=== PATIENT | female | born 1980 | race Two or more races ===

== ENCOUNTER 2024-08-10 09:30 | Outpatient (AMB) | payer OTHER, MEDICAID, SELFPAY ==
[2024-08-10 09:51] VITALS: BP 100/62; PULSE 112; O2SAT 98; BMI 20.7
--- NOTE | 2024-08-10 09:51 | MHC.OFFVIS ---
Vital Signs 08/10/24 09:51 Height 4 ft 11 in Weight 102 lb 11.767 oz BMI 20.7 BP 100/62 Blood Pressure Location Lt brachial Position Sitting Pulse 112 H Pulse Source Pulse Oximeter Pulse Oximetry (%) 98 Oxygen Delivery Method Room Air Intake Visit Reasons: Lupus Intake Note: Patient presents for follow up on lupus. Allergies No Known Allergies Allergy (Verified 08/10/24 09:53) HPI Comments Details: She continues to have joint pain in her hands. A few days ago her left 2nd and 3rd finger were very painful. Pain has decreased today. She has not self medicating. She has not required prednisone since last visit. She denies fevers, rash, Raynaud's phenomenon, urinary symptoms, pleurisy, dyspnea, chest pain. She has dry mouth. Review of Systems Const All systems reviewed & are unremarkable except as noted in HPI and below Physical Exam Vital Signs: Last Vital Signs Pulse 112 H 08/10/24 09:51 BP 100/62 08/10/24 09:51 Pulse Ox 98 08/10/24 09:51 Oxygen Delivery Method Room Air 08/10/24 09:51 BMI result Body Mass Index 20.7 Const Other: General: Comfortable CVS: RRR Respiratory: clear to auscultation bilaterally. Good respiratory effort Skin: No lesions seen, discoloration of fingertips. No digital ulcers. MSK: Tender to palpate bilateral MCPs, PIP knees with synovitis present right 2nd PIP. Tender bilateral shoulders, knees. She has limited flexion left knee due to hamstring pain. Assessment & Plan Assessment & Plan (1) Systemic lupus erythematosus: Comment: Inflammatory arthritis is not controlled on monotherapy with hydroxychloroquine. She has not tolerated and failed DMARDs leflunomide, methotrexate in the past. Benlysta is indicated. We discussed side effects, drug monitoring and benefits. She prefers Benlysta infusion. Code(s): M32.9 - Systemic lupus erythematosus, unspecified Category: Medical Qualifiers: Systemic lupus erythematosus type: unspecified Systemic lupus erythematosus organ involvement: other Qualified Code(s): M32.19 - Other organ or system involvement in systemic lupus erythematosus Plan: Labs to assess disease and drug monitoring ordered After lab results are back, we will send PA process for Benlysta infusion. Continue hydroxychloroquine 200 mg daily [facility] Return to clinic in 3 months Orders: Orders Anti Extractable Nuclear Ag Today M32.9 - Systemic lupus erythematosus, unspecified Anti DNA DS Antibody Today M32.9 - Systemic lupus erythematosus, unspecified Complement C4 Today M32.9 - Systemic lupus erythematosus, unspecified DNA Double Stranded-Crithidia Today M32.9 - Systemic lupus erythematosus, unspecified Erythrocyte Sedimentation Rate Today M32.9 - Systemic lupus erythematosus, unspecified Sjogren's Antibodies Today M32.9 - Systemic lupus erythematosus, unspecified Hepatitis B,C Profile Today M32.9 - Systemic lupus erythematosus, unspecified EDWIN Reflex Titer and Pattern Today M32.9 - Systemic lupus erythematosus, unspecified Complement C3 Today M32.9 - Systemic lupus erythematosus, unspecified C Reactive Protein Today M32.9 - Systemic lupus erythematosus, unspecified UA w Microscopic Today M32.9 - Systemic lupus erythematosus, unspecified Protein Creatinine Ratio, Ur Today M32.9 - Systemic lupus erythematosus, unspecified T Spot TB Today M32.9 - Systemic lupus erythematosus, unspecified Coding Level of Care Code Est Pt Level 4 (29909) Complex EM visit Add On G2211 Diagnoses Systemic lupus erythematosus with other organ involvement, unspecified SLE type M32.19 Systemic lupus erythematosus type: unspecified Systemic lupus erythematosus organ involvement: other
== END 2024-08-10 10:37 | disposition home or self-care (01) ==
PROVIDERS: PCP Internal Medicine; Visit Provider Internal Medicine Rheumatology
DX: M32.19 Other organ or system involvement in systemic lupus erythematosus (principal)
CPT/HCPCS: 99214

== ENCOUNTER → 2024-08-10 09:30 | Outpatient (BNVA) | payer OTHER, MEDICAID, SELFPAY | PROVIDERS: PCP Internal Medicine; Visit Provider Internal Medicine Rheumatology ==

== ENCOUNTER 2024-08-11 08:19 | Outpatient (REF) | payer OTHER, MEDICAID, SELFPAY ==
[2024-08-11 10:24] LABS: Appearance Urine Clear; Color Urine Yellow; Glucose Urine UA Negative (Negative); Leukocyte Esterase Urine Negative (Negative); Nitrite Urine Negative (Negative); PH 6.5 (5.0-9.0); Urine Blood Negative (Negative); Urine Ketones Negative (Negative); Urine Protein Negative (Neg-Trace)
[2024-08-11 10:31] LABS: Bacteria Urine Trace (None Seen); Hyaline Casts Urine 0-2 /LPF (0-2); RBC Urine 0-2 /HPF (0-2)
[2024-08-11 10:37] LABS: C Reactive Protein 0.21 mg/dL (< or = 0.50)
[2024-08-11 11:05] LABS: Creatinine Urine 175.28 mg/dL; Protein/Creatinine Ratio, Ur 0.06 (<0.2); Total Protein Urine Random 10 mg/dL (<12)
[2024-08-11 11:07] LABS: HBS Num1 1.85 mIU/mL (0-7.99); HBc Num1 0.14 S/CO (0.00-0.79); HBsAGNum1 0.41 S/CO (0.00-0.99); Hepatitis B Core Antibody Nonreactive (Nonreactive); Hepatitis B Surface Antigen Negative (Negative); ~HepC Num1 0.23 S/CO (0.00-0.79); ~Hepatitis B Surface Antibody NONREACTIVE (Nonreactive); ~Hepatitis C Antibody Nonreactive (Nonreactive)
[2024-08-11 11:09] LABS: Erythrocyte Sedimentation Rate 28 MM/HR (0-20)
[2024-08-12 21:53] LABS: Anti DNA DS Antibody 1 IU/mL; Antibody to SS-A Antigen <1.0 NEG AI (<1.0 NEG); Antibody to SS-B Antigen <1.0 NEG AI (<1.0 NEG); SM/Ribonucleoprotein Ab <1.0 NEG AI (<1.0 NEG); Smith Protein <1.0 NEG AI (<1.0 NEG)
[2024-08-13 14:49] LABS: Complement C3 127 mg/dL (83-193)
[2024-08-14 02:53] LABS: TS Negative Control Passed; TS Panel A 0; TS Panel B 0; TS Positive Control Passed; TSpotTB Negative (Negative)
[2024-08-16 14:43] LABS: Anti Nuclear Antibody Screen NEGATIVE (NEGATIVE)
[2024-08-19 14:07] LABS: DNAds, Crithidia Antibody Positive (Negative)
[2024-08-19 14:48] LABS: DNAds, Crithidia Antibody 1:10 titer (<1:10)
== END 2024-08-11 08:20 | disposition home or self-care (01) ==
LOC: HO.HMGCLDS 08:19
PROVIDERS: PCP Internal Medicine; Visit Provider Internal Medicine Rheumatology
DX: M32.9 Systemic lupus erythematosus, unspecified (principal)
CPT/HCPCS: 36415; 81001; 82570; 84156; 85652; 86038; 86140; 86160; 86225; 86235; 86255; 86481; 86704; 86706; 86803; 87340

== ENCOUNTER 2024-08-26 12:03 | Outpatient (REF) | payer OTHER, MEDICAID, SELFPAY ==
[2024-08-26 13:06] LABS: MANUAL DIFF FLAG NO
[2024-08-26 13:13] LABS: Basophils Percent Auto 0.6 % (0-2); Eosinophils Absolute Auto 0.1 X10*3/uL (0.0-0.4); Eosinophils Percent Auto 1.3 % (0-4); Hematocrit 35.2 % (37.0-47.0); Hemoglobin 11.4 g/dl (12.0-16.0); Imm Gran Abs Auto 0.02 X10*3/uL (0.00-0.03); Imm Gran Pct Auto 0.4 % (0.0-0.4); Lymphocytes Absolute Auto 1.3 X10*3/uL (1.2-4.9); Lymphocytes Percent Auto 24.8 % (20-40); Mean Corpuscular HGB Conc 32.4 g/dl (31.0-35.0); Mean Corpuscular Hemoglobin 27.9 pg (27.0-33.0); Mean Corpuscular Volume 86.3 fL (80.0-98.0); Monocytes Absolute Auto 0.5 X10*3/uL (0.1-1.2); Monocytes Percent Auto 10.3 % (2-11); Neutrophils Absolute Auto 3.3 x10*3/uL (2.0-8.3); Neutrophils Percent Auto 62.6 % (45-73); Platelet Count 244 X10*3/uL (160-400); Red Blood Count 4.08 X10*6/uL (4.20-5.50); Red Cell Distribution Width 13.6 % (11.0-16.0); White Blood Count 5.3 X10*3/uL (4.8-10.8)
== END 2024-08-26 12:04 | disposition home or self-care (01) ==
LOC: HO.HMGCLDS 12:03
PROVIDERS: Visit Provider Internal Medicine Rheumatology
DX: M32.19 Other organ or system involvement in systemic lupus erythematosus (principal)
CPT/HCPCS: 36415; 85025

== ENCOUNTER 2024-11-09 08:47 | Outpatient (AMB) | payer OTHER, MEDICAID, SELFPAY ==
--- NOTE | 2024-11-09 08:59 | MHC.OFFVIS ---
Vital Signs 11/09/24 09:01 Height 4 ft 11 in Weight 102 lb 8.239 oz BMI 20.7 BP 120/80 Blood Pressure Location Lt brachial Position Sitting Pulse 90 Pulse Source Pulse Oximeter Pulse Oximetry (%) 98 Oxygen Delivery Method Room Air Intake Visit Reasons: 3 mo follow up Intake Note: Patient presents for follow up on lupus. Allergies No Known Allergies Allergy (Verified 11/09/24 09:01) HPI HPI 3 mo follow up: Details: On benlysta infusion. She completed induction and will be receiving 1st maintenance dose next month. No side effect. She has less pain. Sleeping better. No morning stiffness. Wakes up with hand paresthesia. She was diagnosed with carpal tunnel syndrome 3-4 years ago. She remembers having any EMG study. In the past when she were braces she was unable to tolerate at night. She is not wearing braces at this time. Review of Systems Const All systems reviewed & are unremarkable except as noted in HPI and below Physical Exam Vital Signs: Last Vital Signs Pulse 90 11/09/24 09:01 BP 120/80 11/09/24 09:01 Pulse Ox 98 11/09/24 09:01 Oxygen Delivery Method Room Air 11/09/24 09:01 BMI result Body Mass Index 20.7 Const Other: General: Comfortable CVS: RRR Respiratory: clear to auscultation bilaterally. Good respiratory effort Skin: No lesions seen, discoloration of fingertips. No digital ulcers. MSK: Tender left wrists with mild synovitis. No tenderness of small joints in hands. Normal range of motion of upper extremity and lower extremity. Bilateral hallux valgus deformity present. Tender right 1st MTP. Assessment & Plan Assessment & Plan (1) Systemic lupus erythematosus: Comment: Inflammatory arthritis is is better controlled with addition of Benlysta. She completed induction. Rheumatology history: Diagnosed with systemic lupus erythematosus presenting with Raynaud's syndrome, arthralgia, discoid lupus, positive EDWIN 1:400 homogeneous, speckled, nucleolar pattern BMC, anti Bryson antibody (4.8u), anti COOK MANAGER antibody (2.4u). On hydroxychloroquine with initial eye exam 08/31/2020. Failed methotrexate (2017) and sulfasalazine (2018). Benlysta 09/2024- Code(s): M32.9 - Systemic lupus erythematosus, unspecified Category: Medical Qualifiers: Systemic lupus erythematosus organ involvement: other Systemic lupus erythematosus type: unspecified Qualified Code(s): M32.19 - Other organ or system involvement in systemic lupus erythematosus Plan: Labs to assess disease and drug monitoring on high-risk medication ordered Continue Benlysta 10 milligram/kilogram IV infusion every 4 weeks Continue hydroxychloroquine 200 mg daily. Requesting last eye exam for hydroxychloroquine surveillance Return to clinic in 3 months (2) Other long chain beamer (current) drug therapy: Code(s): Z79.899 - Other long chain beamer (current) drug therapy Category: Medical Plan: See above (3) Raynaud disease without gangrene: Comment: Concerned with conservative management Code(s): I73.00 - Raynaud's syndrome without gangrene Category: Medical Plan: Continue conservative management (4) Bunion: Comment: Bilateral clinical diagnosis. Right MTP pain from bunion is uncontrolled. We discussed conservative management. Code(s): M21.619 - Bunion of unspecified foot Category: Medical Plan: Continue to wear supportive footwear Try bunion cushions or brace support from [employer] Try shoes stretches Return to clinic in 3 months Orders: Orders Alanine Aminotransferase Today Z79.60 - skilled nursing (current) use of unspecified immunomodulators and immunosuppressants Erythrocyte Sedimentation Rate Today Z79.899 - Other residential (current) drug therapy C Reactive Protein Today Z79.899 - Other residential (current) drug therapy Complement C3 Today M32.19 - Other organ or system involvement in systemic lupus erythematosus Protein Creatinine Ratio, Ur Today M32.19 - Other organ or system involvement in systemic lupus erythematosus UA w Microscopic Today M32.19 - Other organ or system involvement in systemic lupus erythematosus Anti DNA DS Antibody Today M32.19 - Other organ or system involvement in systemic lupus erythematosus Aspartate Amino Transferase Today Z79.60 - superintendent container terminal (current) use of unspecified immunomodulators and immunosuppressants Complete Blood Count Auto Diff Today Z79.60 - superintendent container terminal (current) use of unspecified immunomodulators and immunosuppressants Creatinine Today Z79.60 - skilled nursing (current) use of unspecified immunomodulators and immunosuppressants Complement C4 Today M32.19 - Other organ or system involvement in systemic lupus erythematosus Coding Level of Care Code Est Pt Level 4 (12846) Complex EM visit Add On G2211 Diagnoses Systemic lupus erythematosus with other organ involvement, unspecified SLE type M32.19 Systemic lupus erythematosus organ involvement: other Systemic lupus erythematosus type: unspecified Other long chain beamer (current) drug therapy Z79.899 Raynaud disease without gangrene I73.00 Bunion M21.619
[2024-11-09 09:01] VITALS: BP 120/80; PULSE 90; O2SAT 98; BMI 20.7
--- OUTSIDE RECORDS SUMMARY | 2024-11-09 09:12 | XMS_ITS | Clinical Summary ---
Author Organization [facility] ity Address [address] [place] [address] Care Team Providers Care Water Purifier Operator Name Role Phone Ryan Moon MD Primary Care Provider [phone] Social History Tobacco Use Types Packs/Day Years Used Date Smoking Tobacco: Never Assessed Comments Unknown Sex and Gender Information Value Date Recorded Sex Assigned at Not on file Legal Sex Female 10:45 PM EST Gender Identity Not on file Sexual Orientation Not on file Plan of Treatment Health Maintenance Due Date Last Done Comments Breast Cancer Screening 1980 COVID-19 Vaccine (#1) 1985 DTaP,Tdap,and Td Vaccines (1 - Tdap) 1999 Hepatitis B Vaccines (1 of 3 - 19+ 3-dose series) 1999 Cervical Cancer Screening: P ap Smear 2001 Depression Screening 07/28/2022 HIV Screening 07/28/2022 Hepatitis C Screening 07/28/2022 Social Influencers of Health Screening 07/28/2022 Influenza Vaccine (#1) 2024 HIB Vaccines Aged Out No longer eligi ble based on patient's age to complete this topic HPV Vaccines Aged Out No longer eligi ble based on patient's age to complete this topic Hepatitis A Vaccines Aged Out No long er eligible based on patient's age to complete this topic IPV Vaccines Aged Out No longer eligi ble based on patient's age to complete this topic MMR Vaccines Aged Out No longer eligi ble based on patient's age to complete this topic Meningococcal ACWY Vaccine Aged Out N o longer eligible based on patient's age to complete this topic Meningococcal B Vacine Aged Out No lo nger eligible based on patient's age to complete this topic Pneumococcal Vaccine: Pediat rics (0 to 5 Years) and At-Risk Patients (6 to 64 Years) Aged Out No longer eligible b ased on patient's age to complete this topic RSV Immunization Patients Un doroteo 20 months Aged Out No longer eligible b ased on patient's age to complete this topic Varicella Vaccines Aged Out No longer eligible based on patient's age to complete this topic Care Teams Water Purifier Operator Relationship Specialty Start Date End Date Ryan Moon MD [address] [place] [phone] PCP - General Internal Medicine 12/02/17
--- OUTSIDE RECORDS SUMMARY | 2024-11-09 09:12 | XMS_ITS | Clinical Summary ---
Author Organization [facility] Address [address] [place] [address] Care Team Providers Care Software Validation Engineer Name Role Phone Ryan Moon MD Primary Care Provider Unava ilable Medications Medication Sig Dispensed Refills Start Date End Date Status hydrocortisone 2.5 % cream Apply topically 2 times daily. 0 Active hydroxychloroquine (PLAQUENIL) 200 MG tablet Take 300 mg by mouth daily. 0 Active gabapentin (NEURONTIN) 300 MG capsule Take 300 mg by mouth at bedtime. 0 Active predniSONE (DELTASONE) 5 MG tablet Take 5 mg by mouth daily. 0 Active sulfaSALAzine (AZULFIDINE) 500 MG tablet Take 500 mg by mouth 2 times daily. 0 Active fluticasone (FLOVENT HFA) 110 MCG/ACT inhaler Inhale 1 Puff into the lungs 2 times daily. 0 Active ALBUTEROL SULFATE 108 (90 BASE) MCG/ACT Aero Soln Inhale 2 Puffs into the lungs every 4 hours as needed. 0 Active betamethasone dipropionate (DIPROLENE) 0.05 % cream Apply sparingly twice a day to affected areas on face for only 5 days every 2-3 weeks if needed 15 g 0 05/27/2018 Active mometasone (ELOCON) 0.1 % cream Apply sparingly twice a day to affected areas on face for 2 weeks as needed 30 g 1 05/27/2018 Active Active Problems No known active problems Social History Tobacco Use Types Packs/Day Years Used Date Smoking Tobacco: Never Assessed Sex Assigned at Date Recorded Not on file Last Filed Vital Signs Vital Sign Reading Time Taken Comments Blood Pressure 96/62 05/27/2018 1:26 PM EDT Pulse 92 05/27/2018 1:26 PM EDT Temperature - - Respiratory Rate - - Oxygen Saturation - - Inhaled Oxygen Concentration - - Weight 43.1 kg (95 lb) 05/27/2018 1:26 PM EDT Height 151.1 cm (4' 11.5 ) 05/27/2018 1:26 PM ED T Body Mass Index 18.87 05/27/2018 1:26 PM EDT Plan of Treatment Health Maintenance Due Date Last Done Comments Covid-19 Vaccine (#1) 04/09/1981 TOBACCO CHECK/ADVISE 1998 DTAP/TDAP/TD (1 - Tdap) 1999 CHOLESTEROL SCREENING 2000 CERVICAL CANCER SCREENING 2001 BASELINE HEALTH EXAM 40-64 2020 MAMMOGRAM 2020 INFLUENZA (#1) 2024 PNEUMOCOCCAL VACCINE FOR HIGH RISK PATIENTS (#1) 10/10 Care Teams Software Validation Engineer Relationship Specialty Start Date End Date Ryan Moon MD PCP - General Internal Medicine 12/02/17
== END 2024-11-09 10:06 | disposition home or self-care (01) ==
LOC: HO.RHES 08:48
PROVIDERS: PCP Internal Medicine; Visit Provider Internal Medicine Rheumatology
DX: M32.19 Other organ or system involvement in systemic lupus erythematosus (principal); Z79.899 Other long term (current) drug therapy; I73.00 Raynaud's syndrome without gangrene; M21.619 Bunion of unspecified foot
CPT/HCPCS: 99214

== ENCOUNTER 2024-11-09 08:47 | Outpatient (REF) | payer OTHER, MEDICAID, SELFPAY ==
[2024-11-09 18:46] LABS: MANUAL DIFF FLAG NO
[2024-11-09 19:09] LABS: Basophils Absolute Auto 0.1 X10*3/uL (0.0-0.2); Basophils Percent Auto 0.7 % (0-2); Eosinophils Absolute Auto 0.1 X10*3/uL (0.0-0.4); Eosinophils Percent Auto 1.7 % (0-4); Hematocrit 36.4 % (37.0-47.0); Hemoglobin 11.5 g/dl (12.0-16.0); Imm Gran Abs Auto 0.02 X10*3/uL (0.00-0.03); Imm Gran Pct Auto 0.3 % (0.0-0.4); Lymphocytes Absolute Auto 0.9 X10*3/uL (1.2-4.9); Lymphocytes Percent Auto 11.5 % (20-40); Mean Corpuscular HGB Conc 31.6 g/dl (31.0-35.0); Mean Corpuscular Hemoglobin 27.3 pg (27.0-33.0); Mean Corpuscular Volume 86.5 fL (80.0-98.0); Mean Platelet Volume 12.8 fL (9.4-12.3); Monocytes Absolute Auto 0.7 X10*3/uL (0.1-1.2); Monocytes Percent Auto 9.4 % (2-11); Neutrophils Absolute Auto 5.7 x10*3/uL (2.0-8.3); Neutrophils Percent Auto 76.4 % (45-73); Platelet Count 252 X10*3/uL (160-400); Red Blood Count 4.21 X10*6/uL (4.20-5.50); Red Cell Distribution Width 14.3 % (11.0-16.0); White Blood Count 7.5 X10*3/uL (4.8-10.8)
[2024-11-09 19:16] LABS: Alanine Aminotransferase 8 U/L (0-31); Aspartate Amino Transferase 19 U/L (5-31); C Reactive Protein 1.21 mg/dL (< or = 0.50); Estimated Glomerular Filt Rate > 60
[2024-11-09 19:58] LABS: Erythrocyte Sedimentation Rate 32 MM/HR (0-20)
[2024-11-10 20:33] LABS: Anti DNA DS Antibody 1 IU/mL
[2024-11-11 16:32] LABS: Complement C3 130 mg/dL (83-193)
== END 2024-11-09 08:48 | disposition home or self-care (01) ==
LOC: HO.HKASLDS 08:47
PROVIDERS: PCP Internal Medicine; Visit Provider Internal Medicine Rheumatology
DX: M32.19 Other organ or system involvement in systemic lupus erythematosus (principal); Z79.60 Long term (current) use of unspecified immunomodulators and immunosuppressants; Z79.899 Other long term (current) drug therapy
CPT/HCPCS: 36415; 82565; 84450; 84460; 85025; 85652; 86140; 86160; 86225

== ENCOUNTER 2025-02-09 09:42 | Outpatient (AMB) | payer MEDICARE, MEDICAID, SELFPAY ==
[2025-02-09 09:46] VITALS: BP 120/80; PULSE 97; O2SAT 100; BMI 20.1
--- NOTE | 2025-02-09 09:46 | A.OFFVIS_ITS ---
Vital Signs 02/09/25 09:46 Height 4 ft 11 in Weight 99 lb 8 oz BMI 20.1 BP 120/80 Blood Pressure Location Rt brachial Position Sitting Pulse 97 Pulse Source Pulse Oximeter Pulse Oximetry (%) 100 Oxygen Delivery Method Room Air Intake Visit Reasons: 3 months Intake Note: Patient presents for follow up on lupus. Accompanied by: Self / Same As Patient Allergies No Known Allergies Allergy (Verified 02/09/25 09:50) HPI HPI 3 months: Details: Increase pain in her bones . Pain is worse since Mother's day. She is experiencing right leg radiculopathy. She stays in bed. Occurs once a month. Hard to lift leg. Physical Exam Vital Signs: Last Vital Signs Pulse 97 02/09/25 09:46 BP 120/80 02/09/25 09:46 Pulse Ox 100 02/09/25 09:46 Oxygen Delivery Method Room Air 02/09/25 09:46 BMI result Body Mass Index 20.1 Const Other: General: Comfortable CVS: RRR Respiratory: clear to auscultation bilaterally. Good respiratory effort Skin: No lesions seen, discoloration of fingertips. No digital ulcers. MSK: Tender left wrist with mild synovitis. Tender bilateral PIP. Normal range of motion of upper extremity and lower extremity. Bilateral hallux valgus deformity present. Assessment & Plan Assessment & Plan (1) Systemic lupus erythematosus: Comment: Inflammatory arthritis is is better controlled with addition of Benlysta. Rheumatology history: Diagnosed with systemic lupus erythematosus presenting with Raynaud's syndrome, arthralgia, discoid lupus, positive EDWIN 1:400 homogeneous, speckled, nucleolar pattern BMC, anti Bryson antibody (4.8u), anti FRATERNITY ADVISER antibody (2.4u). On hydroxychloroquine with initial eye exam 08/31/2020. Failed methotrexate (2017) and sulfasalazine (2019). Benlysta 09/2024- Code(s): M32.9 - Systemic lupus erythematosus, unspecified Category: Medical Qualifiers: Systemic lupus erythematosus type: unspecified Systemic lupus erythematosus organ involvement: other Qualified Code(s): M32.19 - Other organ or system involvement in systemic lupus erythematosus Plan: Labs to assess disease and drug monitoring on high-risk medication ordered Prednisone course prescribed Avoid oral NSAIDs while on prednisone. Okay to take Tylenol PRN pain. Continue Benlysta 10 milligram/kilogram IV infusion every 4 weeks Continue hydroxychloroquine 200 mg daily. VF 2021 ok. Asked patient to schedule visit for OCT exam. Return to clinic in 3 months (2) Other assisted (current) drug therapy: Code(s): Z79.899 - Other marine oil terminal superintendent (current) drug therapy Category: Medical Plan: See above (3) Raynaud disease without gangrene: Comment: Concerned with conservative management Code(s): I73.00 - Raynaud's syndrome without gangrene Category: Medical Plan: Continue conservative management (4) Right sided sciatica: Comment: Intermittent Code(s): M54.31 - Sciatica, right side Category: Medical Plan: PT ordered Orders: Orders Complete Blood Count Man Dif Today M32.9 - Systemic lupus erythematosus, unspecified Alanine Aminotransferase Today M32.9 - Systemic lupus erythematosus, unspecified Aspartate Amino Transferase Today M32.9 - Systemic lupus erythematosus, unspecified C Reactive Protein Today M32.9 - Systemic lupus erythematosus, unspecified UA w Microscopic Today M32.9 - Systemic lupus erythematosus, unspecified Anti DNA DS Antibody Today M32.9 - Systemic lupus erythematosus, unspecified Complement C3 Today M32.9 - Systemic lupus erythematosus, unspecified Creatinine Today M32.9 - Systemic lupus erythematosus, unspecified Erythrocyte Sedimentation Rate Today M32.9 - Systemic lupus erythematosus, unspecified Protein Creatinine Ratio, Ur Today M32.9 - Systemic lupus erythematosus, unspecified Complement C4 Today M32.9 - Systemic lupus erythematosus, unspecified PT Evaluation and Treatment Today M54.31 - Sciatica, right side Medications: New prednisone Take 4 tablets daily 3 days, 3 tablets daily 3 days, 2 tablets daily 3 days, 1 tablet daily 3 days then stop. Take prednisone with food. 5 mg PO DIRECTED 30 tabs 0RF Coding Level of Care Code Est Pt Level 4 (00523) Complex EM visit Add On G2211 Diagnoses Systemic lupus erythematosus with other organ involvement, unspecified SLE type M32.19 Systemic lupus erythematosus type: unspecified Systemic lupus erythematosus organ involvement: other Other assisted (current) drug therapy Z79.899 Raynaud disease without gangrene I73.00 Right sided sciatica M54.31
== END 2025-02-09 10:31 | disposition home or self-care (01) ==
LOC: HO.RHES 09:43
PROVIDERS: PCP Internal Medicine; Visit Provider Internal Medicine Rheumatology
DX: M32.19 Other organ or system involvement in systemic lupus erythematosus (principal); Z79.899 Other long term (current) drug therapy; I73.00 Raynaud's syndrome without gangrene; M54.31 Sciatica, right side
CPT/HCPCS: 99214; G2211

== ENCOUNTER 2025-02-09 09:42 | Outpatient (REF) | payer MEDICARE, MEDICAID, SELFPAY ==
[2025-02-09 18:24] LABS: Alanine Aminotransferase 10 U/L (0-31); Aspartate Amino Transferase 20 U/L (5-31); C Reactive Protein 0.26 mg/dL (< or = 0.50); Estimated Glomerular Filt Rate > 60
[2025-02-09 19:00] LABS: Erythrocyte Sedimentation Rate 33 MM/HR (0-20)
[2025-02-10 10:45] LABS: Complement C3 134 mg/dL (83-193)
[2025-02-10 16:33] LABS: Anti DNA DS Antibody 1 IU/mL
== END 2025-02-09 09:43 | disposition home or self-care (01) ==
LOC: HO.HKASLDS 09:42
PROVIDERS: PCP Internal Medicine; Visit Provider Internal Medicine Rheumatology
DX: M54.31 Sciatica, right side (principal); M32.9 Systemic lupus erythematosus, unspecified; M32.19 Other organ or system involvement in systemic lupus erythematosus; I73.00 Raynaud's syndrome without gangrene; Z79.899 Other long term (current) drug therapy
CPT/HCPCS: 36415; 82565; 84450; 84460; 85652; 86140; 86160; 86225; 99212

== ENCOUNTER 2025-05-12 13:16 | Outpatient (AMB) | payer MEDICARE, MEDICAID, SELFPAY ==
--- NOTE | 2025-05-12 13:23 | A.OFFVIS_ITS ---
Vital Signs 05/12/25 13:27 Height 4 ft 11 in Weight 97 lb 14.164 oz BMI 19.8 BP 110/70 Blood Pressure Location Lt brachial Position Sitting Pulse 110 H Pulse Source Pulse Oximeter Pulse Oximetry (%) 100 Oxygen Delivery Method Room Air Intake Visit Reasons: 3 Months Intake Note: Patient presents for follow up on lupus. Accompanied by: Self / Same As Patient Allergies No Known Allergies Allergy (Verified 05/12/25 13:27) HPI HPI 3 Months: Details: +fatigue. Asthma is active. No rash, pleurisy, sicca symptoms, urinary symptoms, raynaud's syndrome. No recent infection. Increase joint pain in hands few days before benlysta is due but it is tolerable. Physical Exam Vital Signs: Last Vital Signs Pulse 110 H 05/12/25 13:27 BP 110/70 05/12/25 13:27 Pulse Ox 100 05/12/25 13:27 Oxygen Delivery Method Room Air 05/12/25 13:27 BMI result Body Mass Index 19.8 Const Other: General: Comfortable CVS: RRR Respiratory: clear to auscultation bilaterally. Good respiratory effort Skin: No lesions seen, discoloration of fingertips. No digital ulcers. MSK: No tender joints. No synovitis. Normal range of motion of upper extremity and lower extremity. Bilateral hallux valgus deformity present. Assessment & Plan Assessment & Plan (1) Systemic lupus erythematosus: Comment: Inflammatory arthritis is controlled on benlysta. Rheumatology history: Diagnosed with systemic lupus erythematosus presenting with Raynaud's syndrome, arthralgia, discoid lupus, positive EDWIN 1:400 homogeneous, speckled, nucleolar pattern BMC, anti Bryson antibody (4.8u), anti PRECISION LENS CENTERER AND EDGER antibody (2.4u). On hydroxychloroquine with initial eye exam 08/31/2020. Failed methotrexate (2017) and sulfasalazine (2019). Benlysta 09/2024- Code(s): M32.9 - Systemic lupus erythematosus, unspecified Category: Medical Qualifiers: Systemic lupus erythematosus type: unspecified Systemic lupus erythematosus organ involvement: other Qualified Code(s): M32.19 - Other organ or system involvement in systemic lupus erythematosus Plan: Labs to assess disease and drug monitoring on high-risk medication ordered Continue Benlysta 10 milligram/kilogram IV infusion every 4 weeks Continue hydroxychloroquine 200 mg daily. VF 2021 ok. Clinic note 05/06/2025 reviewed - no toxicity on clinical exam and diagnostic test. I am requesting note to specify if OCT and VF testing was done during visit. Avoid oral NSAIDs while on prednisone. Okay to take Tylenol PRN pain. Return to clinic in 3 months (2) Other computer terminal operator (current) drug therapy: Code(s): Z79.899 - Other computer terminal operator (current) drug therapy Category: Medical Plan: See above (3) Raynaud disease without gangrene: Comment: Not active. Code(s): I73.00 - Raynaud's syndrome without gangrene Category: Medical Plan: Continue conservative management Orders: Orders Erythrocyte Sedimentation Rate Today M32.9 - Systemic lupus erythematosus, unspecified Alanine Aminotransferase Today M32.9 - Systemic lupus erythematosus, unspecified Complement C3 Today M32.9 - Systemic lupus erythematosus, unspecified Aspartate Amino Transferase Today M32.9 - Systemic lupus erythematosus, unspecified Anti DNA DS Antibody Today M32.9 - Systemic lupus erythematosus, unspecified C Reactive Protein Today M32.9 - Systemic lupus erythematosus, unspecified Complete Blood Count Auto Diff Today M32.9 - Systemic lupus erythematosus, unspecified Protein Creatinine Ratio, Ur Today M32.9 - Systemic lupus erythematosus, unspecified Complement C4 Today M32.9 - Systemic lupus erythematosus, unspecified Creatinine Today M32.9 - Systemic lupus erythematosus, unspecified UA ClnCatch+Micro w/rflx Cult Today M32.9 - Systemic lupus erythematosus, unspecified Coding Level of Care Code Est Pt Level 4 (85153) Complex EM visit Add On G2211 Diagnoses Systemic lupus erythematosus with other organ involvement, unspecified SLE type M32.19 Systemic lupus erythematosus type: unspecified Systemic lupus erythematosus organ involvement: other Other fdc (current) drug therapy Z79.899 Raynaud disease without gangrene I73.00
[2025-05-12 13:27] VITALS: BP 110/70; PULSE 110; O2SAT 100; BMI 19.8
--- OUTSIDE RECORDS SUMMARY | 2025-05-12 15:18 | XMS_ITS | Clinical Summary ---
Author Organization [facility] ity Address [address] [place] [address] Care Team Providers Care Beef Cattle Farmer Name Role Phone Ryan Moon MD Primary Care Provider [phone] Social History Tobacco Use Types Packs/Day Years [...] Cervical Cancer Screening: P ap Smear 2001 HIV Screening 07/28/2022 Hepatitis C Screening 07/28/2022 Social Influencers of Health Screening 07/28/2022 Depression Screening 08/25/2024 Influenza Vaccine (#1) 2025 HIB Vaccines Aged Out No longer eligi [...] age to complete this topic Meningococcal B Vaccine Aged Out No l onger eligible based on patient's age to complete this topic Pneumococcal Vaccine: Pediat rics (0 to 5 Years) and At-Risk Patients (6 to 49 Years) Aged Out No longer eligible b ased on patient's age to complete this topic RSV Immunization Patients Un doroteo 20 months Aged Out No longer eligible b ased on patient's age to complete this topic Varicella Vaccines Aged Out No longer eligible based on patient's age to complete this topic Care Teams Beef Cattle Farmer Relationship Specialty Start Date End Date Ryan Moon MD [address] [place] [phone] PCP - General Internal Medicine 12/02/17
== END 2025-05-12 13:57 | disposition home or self-care (01) ==
LOC: HO.RHES 13:16
PROVIDERS: PCP Internal Medicine; Visit Provider Internal Medicine Rheumatology
DX: M32.19 Other organ or system involvement in systemic lupus erythematosus (principal); Z79.899 Other long term (current) drug therapy; I73.00 Raynaud's syndrome without gangrene
CPT/HCPCS: 99214; G2211

== ENCOUNTER → 2025-05-12 13:16 | Outpatient (BNVA) | payer MEDICARE, MEDICAID, SELFPAY | PROVIDERS: PCP Internal Medicine; Visit Provider Internal Medicine Rheumatology | DX: M32.19 Other organ or system involvement in systemic lupus erythematosus (principal); I73.00 Raynaud's syndrome without gangrene; Z79.899 Other long term (current) drug therapy | CPT/HCPCS: 99212 ==

== ENCOUNTER 2025-05-13 08:24 | Outpatient (REF) | payer MEDICARE, MEDICAID, SELFPAY ==
--- OUTSIDE RECORDS SUMMARY | 2025-05-13 08:59 | XMS_ITS | Clinical Summary ---
Author Organization [facility] ity Address [address] [place] [address] Care Team Providers Care Line Construction Superintendent Name Role Phone Ryan Moon MD Primary Care Provider Social History Tobacco Use Types Packs/Day Years [...] Depression Screening 08/25/2024 Influenza Vaccine (#1) 2025 RSV Immunization Adult Patie nts (1 - 1-dose 75+ series) 2055 HIB Vaccines Aged Out No longer eligi [...] age to complete this topic Care Teams Line Construction Superintendent Relationship Specialty Start Date End Date Ryan Moon MD [address] [place] [phone] PCP - General Internal Medicine 12/02/17
[2025-05-13 13:28] LABS: Appearance Urine Clear; Glucose Urine UA Negative (Negative); PH 7.0 (5.0-9.0); Specific Gravity - Urine 1.020 (1.005-1.025)
[2025-05-13 13:39] LABS: MANUAL DIFF FLAG NO
[2025-05-13 13:45] LABS: Hematocrit 33.7 % (37.0-47.0); Hemoglobin 10.5 g/dl (12.0-16.0); Imm Gran Abs Auto 0.01 X10*3/uL (0.00-0.03); Imm Gran Pct Auto 0.2 % (0.0-0.4); Lymphocytes Absolute Auto 1.0 X10*3/uL (1.2-4.9); Mean Corpuscular HGB Conc 31.2 g/dl (31.0-35.0); Mean Corpuscular Hemoglobin 26.3 pg (27.0-33.0); Mean Corpuscular Volume 84.3 fL (80.0-98.0); NRBC Abs Auto 0.000 X10*3/uL (0.0-0.012); NRBC Pct Auto 0.0 /100WBC (0.0-0.2); Platelet Count 254 X10*3/uL (160-400); Red Blood Count 4.00 X10*6/uL (4.20-5.50); White Blood Count 4.8 X10*3/uL (4.8-10.8)
[2025-05-13 14:11] LABS: Alanine Aminotransferase 16 U/L (0-31); Aspartate Amino Transferase 21 U/L (5-31); Estimated Glomerular Filt Rate > 60
[2025-05-13 14:15] LABS: Protein/Creatinine Ratio, Ur 0.06 (<0.2); Total Protein Urine Random 12 mg/dL (<12)
== END 2025-05-13 08:25 | disposition home or self-care (01) ==
LOC: HO.HKASLDS 08:24
PROVIDERS: Visit Provider Internal Medicine Rheumatology
DX: M32.9 Systemic lupus erythematosus, unspecified (principal)
CPT/HCPCS: 36415; 81001; 82565; 82570; 84156; 84450; 84460; 85025; 85652; 86140; 86160; 86225

== ENCOUNTER 2025-08-04 09:50 | Outpatient (REF) | payer MEDICARE, MEDICAID, SELFPAY ==
[2025-08-04 14:05] LABS: Appearance Urine Turbid; Glucose Urine UA Negative (Negative); PH 5.5 (5.0-9.0); Specific Gravity - Urine 1.020 (1.005-1.025)
[2025-08-04 14:11] LABS: MANUAL DIFF FLAG NO
[2025-08-04 14:17] LABS: Hematocrit 37.8 % (37.0-47.0); Hemoglobin 11.6 g/dl (12.0-16.0); Imm Gran Abs Auto 0.03 X10*3/uL (0.00-0.03); Imm Gran Pct Auto 0.4 % (0.0-0.4); Lymphocytes Absolute Auto 0.9 X10*3/uL (1.2-4.9); Mean Corpuscular HGB Conc 30.7 g/dl (31.0-35.0); Mean Corpuscular Hemoglobin 26.0 pg (27.0-33.0); Mean Corpuscular Volume 84.6 fL (80.0-98.0); NRBC Abs Auto 0.000 X10*3/uL (0.0-0.012); NRBC Pct Auto 0.0 /100WBC (0.0-0.2); Platelet Count 236 X10*3/uL (160-400); Red Blood Count 4.47 X10*6/uL (4.20-5.50); White Blood Count 6.8 X10*3/uL (4.8-10.8)
[2025-08-04 14:31] LABS: Alanine Aminotransferase 16 U/L (0-31); Aspartate Amino Transferase 19 U/L (5-31); Estimated Glomerular Filt Rate > 60
[2025-08-04 14:47] LABS: Protein/Creatinine Ratio, Ur 0.05 (<0.2); Total Protein Urine Random 11 mg/dL (<12)
== END 2025-08-04 09:51 | disposition home or self-care (01) ==
LOC: HO.HKASLDS 09:50
PROVIDERS: PCP Internal Medicine; Visit Provider Internal Medicine Rheumatology
DX: Z51.81 Encounter for therapeutic drug level monitoring (principal); M32.19 Other organ or system involvement in systemic lupus erythematosus; I73.00 Raynaud's syndrome without gangrene; Z79.899 Other long term (current) drug therapy
CPT/HCPCS: 36415; 81001; 82565; 82570; 84156; 84450; 84460; 85025; 85652; 86140; 86160; 86225; 99212

== ENCOUNTER 2025-08-04 09:50 | Outpatient (AMB) | payer MEDICARE, MEDICAID, SELFPAY ==
--- NOTE | 2025-08-04 09:52 | A.OFFVIS_ITS ---
Vital Signs 08/04/25 10:06 Height 4 ft 11 in Weight 101 lb 3.075 oz BMI 20.4 BP 114/80 Blood Pressure Location Rt brachial Position Sitting Pulse 113 H Pulse Source Pulse Oximeter Pulse Oximetry (%) 100 Oxygen Delivery Method Room Air Intake Visit Reasons: 3months Intake Note: Patient presents for follow up on lupus. Accompanied by: Self / Same As Patient Allergies No Known Allergies Allergy (Verified 08/04/25 09:52) HPI HPI 3months: Details: She had flu and COVID-19 infection in May and June. She has had pain in her left mid back since. Now it soreness. She used to have sharp shooting pain in the left mid back. She has new skin lesions around her lip. 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 She has new joint pain and swelling in her hands, shoulders and knees. She denies fevers, dyspnea, pleurisy, oral ulcers, urinary symptoms. Physical Exam Vital Signs: Last Vital Signs Pulse 113 H 08/04/25 10:06 BP 114/80 08/04/25 10:06 Pulse Ox 100 08/04/25 10:06 Oxygen Delivery Method Room Air 08/04/25 10:06 BMI result Body Mass Index 20.4 Const Other: General: Comfortable CVS: RRR Respiratory: clear to auscultation bilaterally. Good respiratory effort Skin: She has hyperpigmented circular lesion below left lip and a new ulcerated lesion above right upper lip. No discoloration of fingertips. No digital ulcers. Oral: No oral ulcers. MSK: Tender MCPs, PIP knees, wrists, shoulders, right knee. Synovitis left 2nd and 3rd PIP. Normal range of motion of upper extremity and lower extremity. Bilateral hallux valgus deformity present. Tender to palpate left lateral mid back. Assessment & Plan Assessment & Plan (1) Systemic lupus erythematosus: Comment: Inflammatory arthritis and cutaneous lupus is uncontrolled. She had flu then COVID-19 between May and June. Labs from April 2025 revealed new hypocomplementemia C3 and C4 indicating serological activity from lupus. Rheumatology history: Diagnosed with systemic lupus erythematosus presenting with Raynaud's syndrome, arthralgia, discoid lupus, positive EDWIN 1:400 homogeneous, speckled, nucleolar pattern [facility], anti Bryson antibody (4.8u), anti R MISSING PERSONS INVESTIGATOR antibody (2.4u). On hydroxychloroquine with initial eye exam 08/31/2020. Failed methotrexate (2018) and sulfasalazine (2019). Benlysta 09/2024- Code(s): M32.9 - Systemic lupus erythematosus, unspecified Category: Medical Qualifiers: Systemic lupus erythematosus type: unspecified Systemic lupus erythematosus organ involvement: other Qualified Code(s): M32.19 - Other organ or system involvement in systemic lupus erythematosus Plan: Labs to assess disease and drug monitoring on high-risk medication ordered Continue Benlysta 10 milligram/kilogram IV infusion every 4 weeks Continue hydroxychloroquine 200 mg daily. VF 2021 ok. Clinic note 05/06/2025 reviewed - no toxicity on clinical exam and diagnostic test. I am requesting note to specify if OCT and VF testing was done during visit. 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 Code(s): I73.00 - Raynaud's syndrome without gangrene Category: Medical Plan: Continue conservative management Orders: Orders Complement C3 Today M32.9 - Systemic lupus erythematosus, unspecified Complete Blood Count Auto Diff Today M32.9 - Systemic lupus erythematosus, unspecified Erythrocyte Sedimentation Rate Today M32.9 - Systemic lupus erythematosus, unspecified Protein Creatinine Ratio, Ur Today M32.9 - Systemic lupus erythematosus, unspecified Alanine Aminotransferase Today M32.9 - Systemic lupus erythematosus, unspecified Aspartate Amino Transferase Today M32.9 - Systemic lupus erythematosus, unspecified Complement C4 Today M32.9 - Systemic lupus erythematosus, unspecified Creatinine Today M32.9 - Systemic lupus erythematosus, unspecified Anti DNA DS Antibody Today M32.9 - Systemic lupus erythematosus, unspecified UA ClnCatch+Micro w/rflx Cult Today M32.9 - Systemic lupus erythematosus, unspecified C Reactive Protein Today M32.9 - Systemic lupus erythematosus, unspecified Medications: New prednisone Take 4 tablets daily 3 days, 3 tablets daily 3 days, 2 tablets daily 3 days, 1 tablet daily 3 days then stop. Take prednisone with food. 5 mg PO DIRECTED 30 tabs 0RF cyclobenzaprine 5 mg PO BEDTIME PRN 30 tabs 0RF muscle spasm Refilled hydroxychloroquine 200 mg PO DAILY 90 tabs 1RF Coding Level of Care Code Est Pt Level 4 (70670) Add On Problem Visit Only Diagnoses Systemic lupus erythematosus with other organ involvement, unspecified SLE type M32.19 Systemic lupus erythematosus type: unspecified Systemic lupus erythematosus organ involvement: other Other intermodal owner operator truck driver (current) drug therapy Z79.899 Raynaud disease without gangrene I73.00
[2025-08-04 10:06] VITALS: BP 114/80; PULSE 113; O2SAT 100; BMI 20.4
== END 2025-08-04 11:17 | disposition home or self-care (01) ==
LOC: HO.RHES 09:51
PROVIDERS: PCP Internal Medicine; Visit Provider Internal Medicine Rheumatology
DX: M32.19 Other organ or system involvement in systemic lupus erythematosus (principal); Z79.899 Other long term (current) drug therapy; I73.00 Raynaud's syndrome without gangrene
CPT/HCPCS: 99214; G2211